=== PATIENT | female | born 1995 | race Caucasian/White ===

== ENCOUNTER 2023-01-14 09:23 | Emergency (ER) | payer OTHER ==
--- NOTE | 2023-01-14 09:43 | ERPHSYRPT ---
- History of Present Illness Time Seen by Provider: 01/14/23 09:43 Historian: patient Exam Limitations: no limitations Physician History: This is a 27-year-old white female patient who has a history of rheumatoid arthritis/lupus on methotrexate and leucovorin medication for this condition as well as pilocarpine for dry mouth, who presents to the emergency room with sub sternal central chest pain that is described as a squeezing and choking sensation that began 6 days ago. It has been intermittent radiating up into her neck at times. However since yesterday evening, is been more constant. Patient also has a history of anxiety and anemia. There have been no new medications. Patient has not had a cough or fever. She has no flulike symptoms. Prior to Tuesday, patient denies having this type of symptomatology. She is not short of breath. She has no abdominal pain. She has had no nausea vomiting or diarrhea symptoms. Timing/Duration: day(s) (6) Activities at Onset: none Quality: other (Squeezing choking sensation) Location: substernal, central Chest Pain Radiation: neck Severity of Pain-Max: mild (To moderate) Severity of Pain-Current: mild Modifying Factors: Improves With: nothing Associated Symptoms: denies symptoms Prior Chest Pain/Cardiac Workup: no prior chest pain Nitro Today/Relief: no nitro taken today Aspirin Treatment Today: no aspirin today Allergies/Adverse Reactions: No Known Drug Allergies Allergy (Unverified 01/14/23 09:38) Home Medications: Ferrous Sulfate 325 mg [Feosol 325 mg] 325 mg PO DAILY 01/14/23 [History] Fluoxetine HCl 10 mg [Prozac 10 mg] 10 mg PO DAILY 01/14/23 [History] Leucovorin Calcium 10 mg PO DAILY 01/14/23 [History] Methotrexate [Xatmep] 2.5 mg PO UD 01/14/23 [History] Pilocarpine HCl [Salagen] 5 mg PO DAILY 01/14/23 [History] Travel Risk - International Travel Have you traveled outside of the country in past 3 weeks: No - Coronavirus Screening Are you exhibiting any of the following symptoms?: No Close contact with a COVID-19 positive Pt in past 14-21 Days: No - Review of Systems Constitutional: No Symptoms Eyes: No Symptoms Ears, Nose, & Throat: No Symptoms Respiratory: No Symptoms Cardiac: Chest Pain Abdominal/Gastrointestinal: No Symptoms Genitourinary Symptoms: No Symptoms Musculoskeletal: No Symptoms Skin: No Symptoms Neurological: No Symptoms Psychological: No Symptoms Endocrine: No Symptoms Hematologic/Lymphatic: No Symptoms Immunological/Allergic: No Symptoms All Other Systems: Reviewed and Negative - Past Medical History Pertinent Past Medical History: Yes - Past Surgical History Past Surgical History: Yes - Nursing Vital Signs Nursing Vital Signs: Initial Vital Signs Pulse Rate 84 01/14/23 09:35 Respiratory Rate 15 01/14/23 09:35 Blood Pressure 133/79 01/14/23 09:35 O2 Sat by Pulse Oximetry 100 01/14/23 09:35 Pain Scale Pain Intensity 5 - Physical Exam General Appearance: no apparent distress, alert, anxiety Eye Exam: PERRL/EOMI, eyes nml inspection Ears, Nose, Throat Exam: normal ENT inspection, moist mucous membranes Neck Exam: normal inspection, non-tender, supple, full range of motion Respiratory Exam: normal breath sounds, chest tenderness, lungs clear, airway intact, No respiratory distress Cardiovascular Exam: regular rate/rhythm, normal heart sounds, normal peripheral pulses Gastrointestinal/Abdomen Exam: soft, normal bowel sounds, No tenderness Pelvic Exam: not done Rectal Exam: not done Back Exam: normal inspection, normal range of motion, No CVA tenderness, No vertebral tenderness Extremity Exam: normal inspection, normal range of motion, pelvis stable Neurologic Exam: alert, oriented x 3, cooperative, youth care specialist II-XII nml as tested, n ormal mood/affect, nml cerebellar function, nml station & gait, sensation nml Skin Exam: normal color, warm, dry Lymphatic Exam: No adenopathy SpO2 Interpretation: normal O2 Delivery: Room Air - Course Nursing assessment & vital signs reviewed: Yes EKG Interpreted by Me: RATE (96), Sinus Rhythm, NORMAL AXIS, NORMAL INTERVALS, NORMAL QRS, NORMAL ST-T, Other (No acute ischemic changes on today's twelve-lead EKG.) Ordered Tests: Active Orders 24 hr Category Date Time Status Circuit Design Engineer STAT Care 01/14/23 10:06 Active EKG-ER Only STAT Care 01/14/23 10:06 Active IV Insertion STAT Care 01/14/23 10:06 Active Pulse Oximetry (ED) STAT Care 01/14/23 10:06 Active CHEST 1 VIEW (PORTABLE) Stat Exams 01/14/23 10:06 Completed CBC W DIFF Stat Lab 01/14/23 10:10 Completed CMP Stat Lab 01/14/23 10:10 Completed D-DIMER QUANTITATIVE Stat Lab 01/14/23 10:10 Completed TROPONIN Q4H Lab 01/14/23 10:10 Completed TROPONIN Q4H Lab 01/14/23 14:15 Ordered TROPONIN Q4H Lab 01/14/23 18:15 Ordered Medication Summary Discontinued Medications Generic Name Dose Route Start Last Admin Trade Name Connor PRN Reason Stop Dose Admin Aspirin 324 mg 01/14/23 10:06 01/14/23 10:23 Aspirin 81 Mg Tab.Chew PO 01/14/23 10:07 324 mg STAT ONE Administration Aspirin Confirm 01/14/23 10:17 Aspirin 81 Mg Tab.Chew Administered 01/14/23 10:18 Dose 324 mg .ROUTE .STK-MED ONE Lab/Rad Data: Laboratory Result Diagrams 01/14/23 10:10 01/14/23 10:10 Laboratory Results 01/14/23 01/14/23 01/14/23 Range/Units 10:10 10:10 10:10 WBC (4.0-10.5) x10^3/uL RBC (4.1-5.4) x10^6/uL Hgb (12.0-16.0) g/dL Hct (35-47) % MCV (78-100) fL MCH (26-32) pg MCHC (32-36) g/dL RDW (11.5-14.0) % Plt Count (150-450) x10^3/uL MPV (7.5-11.0) fL Gran % (36.0-66.0) % Immature Gran % (Auto) (0.00-0.4) % Nucleat RBC Rel Count (0.00-0.1) % Eos # (Auto) (0-0.5) x10^3/uL Immature Gran # (Auto) (0.00-0.03) x10^3u/L Absolute Lymphs (auto) (1.0-4.6) x10^3/uL Absolute Monos (auto) (0.0-1.3) x10^3/uL Absolute Nucleated RBC (0.00-0.01) x10^3u/L Lymphocytes % (24.0-44.0) % Monocytes % (0.0-12.0) % Eosinophils % (0.00-5.0) % Basophils % (0.0-0.4) % Absolute Granulocytes (1.4-6.9) x10^3/uL Basophils # (0-0.4) x10^3/uL D-Dimer 0.44 (0.0-0.50) mg/L Sodium 142 (137-145) mmol/L Potassium 4.3 (3.5-5.1) mmol/L Chloride 107 (98-107) mmol/L Carbon Dioxide 27 (22-30) mmol/L Anion Gap 13.1 (5-15) MEQ/L BUN 10 (7-17) mg/dL Creatinine 0.72 (0.52-1.04) mg/dL Estimated GFR > 60.0 ML/MIN Glucose 82 (74-106) mg/dL Calcium 9.0 (8.4-10.2) mg/dL Total Bilirubin 0.40 (0.2-1.3) mg/dL AST 29 (14-36) U/L ALT 33 (0-35) U/L Alkaline Phosphatase 67 (38-126) U/L Troponin I < 0.012 (0.000-0.034) ng/mL Serum Total Protein 8.2 (6.3-8.2) g/dL Albumin 4.1 (3.5-5.0) g/dL 01/14/23 Range/Units 10:10 WBC 3.7 L (4.0-10.5) x10^3/uL RBC 3.84 L (4.1-5.4) x10^6/uL Hgb 11.4 L (12.0-16.0) g/dL Hct 34.3 L (35-47) % MCV 89.3 (78-100) fL MCH 29.7 (26-32) pg MCHC 33.2 (32-36) g/dL RDW 12.8 (11.5-14.0) % Plt Count 266 (150-450) x10^3/uL MPV 9.5 (7.5-11.0) fL Gran % 62.2 (36.0-66.0) % Immature Gran % (Auto) 0.3 (0.00-0.4) % Nucleat RBC Rel Count 0.0 (0.00-0.1) % Eos # (Auto) 0.03 (0-0.5) x10^3/uL Immature Gran # (Auto) 0.01 (0.00-0.03) x10^3u/L Absolute Lymphs (auto) 0.99 L (1.0-4.6) x10^3/uL Absolute Monos (auto) 0.35 (0.0-1.3) x10^3/uL Absolute Nucleated RBC 0.00 (0.00-0.01) x10^3u/L Lymphocytes % 26.9 (24.0-44.0) % Monocytes % 9.5 (0.0-12.0) % Eosinophils % 0.8 (0.00-5.0) % Basophils % 0.3 (0.0-0.4) % Absolute Granulocytes 2.29 (1.4-6.9) x10^3/uL Basophils # 0.01 (0-0.4) x10^3/uL D-Dimer (0.0-0.50) mg/L Sodium (137-145) mmol/L Potassium (3.5-5.1) mmol/L Chloride (98-107) mmol/L Carbon Dioxide (22-30) mmol/L Anion Gap (5-15) MEQ/L BUN (7-17) mg/dL Creatinine (0.52-1.04) mg/dL Estimated GFR ML/MIN Glucose (74-106) mg/dL Calcium (8.4-10.2) mg/dL Total Bilirubin (0.2-1.3) mg/dL AST (14-36) U/L ALT (0-35) U/L Alkaline Phosphatase (38-126) U/L Troponin I (0.000-0.034) ng/mL Serum Total Protein (6.3-8.2) g/dL Albumin (3.5-5.0) g/dL - Progress Progress: improved, re-examined Air Movement: good Progress Note: 01/14/23 10:40 This patient's medical issue is 1 of moderate complexity. The level of complexity in the work-up performed is based on review of the patient's past medical history, review of the patient's medication list, review of the patient's drug allergy list, history of present illness and physical findings on examination. The work-up in this patient includes placement of intravenous line, providing the patient with aspirin, CBC, CMP, D-dimer, troponin level and chest x-ray. The results of these studies are pending. 01/14/23 11:07 Chest x-ray was interpreted by the radiologist and I reviewed the impression. There is no evidence of any acute cardiopulmonary process. Blood Culture(s) Obtained: No Antibiotics given: No Counseled pt/family regarding: lab results, diagnosis, need for follow-up, rad results Medical Desision Making - Independent Historian Additional History obtained from: Mother - Diagnostic Testing Diagnostic test were ordered, analyzed, and reviewed by me: Yes Radiological Interpretation: Reviewed by me, Teleradiologist Report - Risk of complications Low Risk: Low risk of morbidity from additional dx testing or treatment - Departure Departure Disposition: Home Clinical Impression: Chest pain Condition: Stable Critical Care Time: No Referrals: JEAN-PIERRE DE PAZ NP [NON-STAFF PHY W/O PRIVILEGES] - Follow up/PCP as directed Additional Instructions: Drink plenty of fluids. May use Tylenol and ibuprofen for pain control. Call your primary care provider and lead miner blasting today to make arrangements for follow-up appointment for further evaluation and management.
[2023-01-14 09:47] VITALS: TEMP 97.2
[2023-01-14] MEDS ORDERED: BABY ASPIRIN 81 MG CHEW PO ONE (10:06)
[2023-01-14] MEDS ORDERED: BABY ASPIRIN 81 MG CHEW ONE (10:17)
[2023-01-14 10:20] LABS: Absolute Neutrophil Ct (ANC) 2.29 x10^3/uL (1.4-6.9); BASOPHIL % 0.3 % (0.0-0.4); Basophil (Absolute #) 0.01 x10^3/uL (0-0.4); Eosinophil % 0.8 % (0.00-5.0); Eosinophil (Absolute #) 0.03 x10^3/uL (0-0.5); Hematocrit 34.3 % (35-47); Hemoglobin 11.4 g/dL (12.0-16.0); IMMATURE GRAN # 0.01 x10^3u/L (0.00-0.03); IMMATURE GRAN % 0.3 % (0.00-0.4); Lymphocyte (Absolute #) 0.99 x10^3/uL (1.0-4.6); Lymphocytes % 26.9 % (24.0-44.0); Mean Cell Volume 89.3 fL (78-100); Mean Corpuscular Hemoglobin 29.7 pg (26-32); Mean Corpuscular Hgb Concent. 33.2 g/dL (32-36); Mean Platelet Volume 9.5 fL (7.5-11.0); Monocyte (Absolute #) 0.35 x10^3/uL (0.0-1.3); Monocytes % 9.5 % (0.0-12.0); Neutrophil % 62.2 % (36.0-66.0); Platelet Count 266 x10^3/uL (150-450); Red Blood Count 3.84 x10^6/uL (4.1-5.4); Red Cell Distribution Width 12.8 % (11.5-14.0); White Blood Count 3.7 x10^3/uL (4.0-10.5)
[2023-01-14 10:35] LABS: ALBUMIN 4.1 g/dL (3.5-5.0); ALKALINE PHOSPHATASE 67 U/L (38-126); ANION GAP 13.1 MEQ/L (5-15); BLOOD UREA NITROGEN 10 mg/dL (7-17); CHLORIDE 107 mmol/L (98-107); Carbon Dioxide 27 mmol/L (22-30); Creatinine 1 0.72 mg/dL (0.52-1.04); EST GLOMERULAR FILTRATION RATE > 60.0 ML/MIN; Glucose 82 mg/dL (74-106); Potassium 4.3 mmol/L (3.5-5.1); SGOT/AST 29 U/L (14-36); SGPT/ALT 33 U/L (0-35); SODIUM 142 mmol/L (137-145); Total Protein 8.2 g/dL (6.3-8.2)
--- NOTE | 2023-01-14 10:41 | XRAY ---
Indication: Chest pain/pressure. Comparison: None Portable chest demonstrates normal heart, lungs, and bony thorax.
[2023-01-14 11:18] VITALS: BP 118/52; PULSE 84; RESP 14; O2SAT 98
== END 2023-01-14 11:26 | disposition home or self-care (01) ==
LOC: ED 09:23
DX: R07.9 Chest pain, unspecified (principal); Z79.899 Other long term (current) drug therapy
CPT/HCPCS: 36000; 36415; 71045; 80053; 84484; 85025; 85379; 93005; 93041; 94760; 99284; A9270-GY

== ENCOUNTER 2024-01-04 16:03 | Emergency (ER) | payer OTHER ==
--- NOTE | 2024-01-04 16:07 | ERPHSYRPT ---
- History of Present Illness Time Seen by Provider: 01/04/24 16:07 Historian: patient Exam Limitations: no limitations Physician History: This is a 28-year-old white female patient who has chest discomfort that worsens with inspiration. She describes it as an ache but then it changes to sharp pain when she takes a deep breath. Patient has a known history of pericarditis. She is on prednisone 5 mg daily. Patient contacted her primary care provider who requested that she come to the emergency department. Patient showed me the request of certain items that they desire and the workup which includes D-dimer, chest x-ray and twelve-lead EKG. It also provided her with the plan of care if everything in our workup is normal and that is to increase her prednisone. Patient has had no cough. Patient denies fever. She has no known coronary artery disease. Patient has a history anxiety and chronic anemia. Timing/Duration: other (Unchanged in the last 2 weeks) Activities at Onset: none Quality: aching, sharpness Location: substernal, central Chest Pain Radiation: no radiation Severity of Pain-Max: mild (To moderate with deep inspiration) Severity of Pain-Current: mild Modifying Factors: Improves With: nothing Associated Symptoms: denies symptoms Nitro Today/Relief: no nitro taken today Aspirin Treatment Today: no aspirin today Allergies/Adverse Reactions: No Known Drug Allergies Allergy (Unverified 01/14/23 09:38) Home Medications: Ferrous Sulfate 325 mg [Feosol 325 mg] 325 mg PO DAILY 01/14/23 [History] Fluoxetine HCl 10 mg [Prozac 10 mg] 10 mg PO DAILY 01/14/23 [History] Pilocarpine HCl [Salagen] 5 mg PO DAILY 01/14/23 [History] Belimumab [Benlysta] 200 mg SQ UD 01/04/24 [History] Hydroxychloroquine Sulfate 200 mg PO BID 01/04/24 [History] Mecobalamin [B12 Active] 1,000 mcg PO DAILY 01/04/24 [History] Prednisone 5 mg [Deltasone 5 mg] 5 mg PO DAILY 01/04/24 [History] Hx Tetanus, Diphtheria Vaccination/Date Given: No Hx Influenza Vaccination/Date Given: Yes Hx Pneumococcal Vaccination/Date Given: No Travel Risk - International Travel Have you traveled outside of the country in past 3 weeks: No - Emerging Infectious Disease Are you exhibiting symptoms associated with any current EIDs: No - Review of Systems Constitutional: No Symptoms Eyes: No Symptoms Ears, Nose, & Throat: No Symptoms Respiratory: No Symptoms Cardiac: Chest Pain Abdominal/Gastrointestinal: No Symptoms Genitourinary Symptoms: No Symptoms Musculoskeletal: No Symptoms Skin: No Symptoms Neurological: No Symptoms Psychological: No Symptoms Endocrine: No Symptoms Hematologic/Lymphatic: No Symptoms Immunological/Allergic: No Symptoms All Other Systems: Reviewed and Negative - Past Medical History Pertinent Past Medical History: Yes Musculoskeletal History: Rheumatoid Arthritis Other Medical History: lupus ,anemia - Past Surgical History Past Surgical History: Yes - Social History Smoking Status: Never smoker Exposure to second hand smoke: No Drug Use: none Patient Lives Alone: Yes - Nursing Vital Signs Nursing Vital Signs: Initial Vital Signs Pulse Rate 85 01/04/24 16:06 Respiratory Rate 19 01/04/24 16:06 Blood Pressure 140/80 01/04/24 16:06 O2 Sat by Pulse Oximetry 98 01/04/24 16:06 Pain Scale Pain Intensity 6 - Physical Exam General Appearance: no apparent distress, alert Eye Exam: PERRL/EOMI, eyes nml inspection Ears, Nose, Throat Exam: normal ENT inspection, moist mucous membranes Neck Exam: normal inspection, non-tender, supple, full range of motion Respiratory Exam: normal breath sounds, chest tenderness, lungs clear, airway intact, No respiratory distress Cardiovascular Exam: regular rate/rhythm, normal heart sounds, normal peripheral pulses Gastrointestinal/Abdomen Exam: soft, normal bowel sounds, No tenderness Pelvic Exam: not done Rectal Exam: not done Back Exam: normal inspection, normal range of motion, No CVA tenderness, No vertebral tenderness Extremity Exam: normal inspection, normal range of motion, pelvis stable Neurologic Exam: alert, oriented x 3, cooperative, supervisor of guidance and testing II-XII nml as tested, normal mood/affect, nml cerebellar function, nml station & gait, sensation nml Skin Exam: normal color, warm, dry Lymphatic Exam: No adenopathy SpO2 Interpretation: normal O2 Delivery: Room Air - Course Nursing assessment & vital signs reviewed: Yes EKG Interpreted by Me: RATE (77), Sinus Rhythm, NORMAL AXIS, NORMAL INTERVALS, NORMAL QRS, Other (No acute ischemic changes on today's twelve-lead EKG.) Ordered Tests: Active Orders 24 hr Category Date Time Status High Pressure Firer STAT Care 01/04/24 16:08 Active EKG-ER Only STAT Care 01/04/24 16:07 Active IV Insertion STAT Care 01/04/24 16:07 Active Pulse Oximetry (ED) STAT Care 01/04/24 16:07 Active CHEST 1 VIEW (PORTABLE) Stat Exams 01/04/24 16:07 Completed CHEST WITH CONTRAST [CT] Stat Exams 01/04/24 17:38 Taken CBC W DIFF Stat Lab 01/04/24 16:15 Completed CMP Stat Lab 01/04/24 16:15 Completed D-DIMER QUANTITATIVE Stat Lab 01/04/24 16:15 Completed MAGNESIUM Stat Lab 01/04/24 16:15 Completed TROPONIN Q4H Lab 01/04/24 16:15 Completed TROPONIN Q4H Lab 01/04/24 20:15 Ordered TROPONIN Q4H Lab 01/05/24 00:15 Ordered Medication Summary Discontinued Medications Generic Name Dose Route Start Last Admin Trade Name Freq PRN Reason Stop Dose Admin Aspirin 324 mg 01/04/24 16:07 01/04/24 16:21 Aspirin 81 Mg Tab.Chew PO 01/04/24 16:08 Not Given STAT ONE Aspirin 162 mg 01/04/24 16:15 01/04/24 16:24 Aspirin 81 Mg Tab.Chew PO 01/04/24 16:16 162 mg STAT ONE Administration Aspirin Confirm 01/04/24 16:23 Aspirin 81 Mg Tab.Chew Administered 01/04/24 16:24 Dose 162 mg .ROUTE .STK-MED ONE Methylprednisolone Sodium 0 mg 01/04/24 16:46 01/04/24 16:54 Succinate 125 mg/ Sterile IV 01/04/24 16:47 125 mg Water 2 ml STAT ONE Administration Sodium Chloride 500 mls @ 500 mls/hr 01/04/24 17:39 01/04/24 18:13 Sodium Chloride 0.9% 500 Ml IV 01/04/24 18:38 Infused .Q1H ONE Infusion Sodium Chloride Confirm 01/04/24 17:41 Sodium Chloride 0.9% 500 Ml Administered 01/04/24 17:42 Dose 500 mls @ ud IV .STK-MED ONE Methylprednisolone Sodium Succinate Confirm 01/04/24 16:50 Methylprednis Sod Succ 125 Mg/2 Ml Vial Administered 01/04/24 16:51 Dose 125 mg .ROUTE .STK-MED ONE Sterile Water Confirm 01/04/24 16:50 Water For Injection,Sterile 10 Ml Vial Administered 01/04/24 16:51 Dose 10 ml IJ .[place]-MED ONE Lab/Rad Data: Laboratory Result Diagrams 01/04/24 16:15 01/04/24 16:15 Laboratory Results 01/04/24 01/04/24 01/04/24 Range/Units 16:15 16:15 16:15 WBC (3.98-10.04) x10^3/uL RBC (3.93-5.22) x10^6/uL Hgb (11.2-15.7) g/dL Hct (34.1-44.9) % MCV (79.4-94.8) fL MCH (25.6-32.2) pg MCHC (32.2-35.5) g/dL RDW (11.7-14.4) % Plt Count (182-369) x10^3/uL MPV (9.4-12.3) fL Gran % (34.0-71.1) % Immature Gran % (Auto) (0.001-0.429) % Nucleat RBC Rel Count (0.00-0.2) % Eos # (Auto) (0.04-0.36) x10^3/uL Immature Gran # (Auto) (0.001-0.031) x10^3u/L Absolute Lymphs (auto) (1.18-3.74) x10^3/uL Absolute Monos (auto) (0.24-0.86) x10^3/uL Absolute Nucleated RBC (0.00-0.012) x10^3u/L Lymphocytes % (19.3-51.7) % Monocytes % (4.7-12.5) % Eosinophils % (0.7-5.8) % Basophils % (0.1-1.2) % Absolute Granulocytes (1.56-6.13) x10^3/uL Basophils # (0.01-0.08) x10^3/uL D-Dimer 1.05 H* (0.0-0.50) mg/L Sodium 138 (135-145) mmol/L Potassium 4.2 (3.5-5.1) mmol/L Chloride 105 (98-107) mmol/L Carbon Dioxide 26 (22-30) mmol/L Anion Gap 11.8 (5-15) MEQ/L BUN 16 (7-17) mg/dL Creatinine 0.76 (0.52-1.04) mg/dL Estimated GFR 110.8 ML/MIN Glucose 96 (74-106) mg/dL Calcium 9.1 (8.4-10.2) mg/dL Magnesium 1.8 (1.6-2.3) mg/dL Total Bilirubin 0.20 (0.2-1.3) mg/dL AST 23 (14-36) U/L ALT 19 (0-35) U/L Alkaline Phosphatase 61 (38-126) U/L Troponin I < 0.012 (0.000-0.033) ng/mL Serum Total Protein 7.4 (6.3-8.2) g/dL Albumin 3.6 (3.5-5.0) g/dL 01/04/24 Range/Units 16:15 WBC 5.9 (3.98-10.04) x10^3/uL RBC 3.96 (3.93-5.22) x10^6/uL Hgb 11.4 (11.2-15.7) g/dL Hct 34.2 (34.1-44.9) % MCV 86.4 (79.4-94.8) fL MCH 28.8 (25.6-32.2) pg MCHC 33.3 (32.2-35.5) g/dL RDW 13.2 (11.7-14.4) % Plt Count 320 (182-369) x10^3/uL MPV 9.1 L (9.4-12.3) fL Gran % 74.8 H (34.0-71.1) % Immature Gran % (Auto) 0.5 H (0.001-0.429) % Nucleat RBC Rel Count 0.0 (0.00-0.2) % Eos # (Auto) 0.06 (0.04-0.36) x10^3/uL Immature Gran # (Auto) 0.03 (0.001-0.031) x10^3u/L Absolute Lymphs (auto) 1.00 L (1.18-3.74) x10^3/uL Absolute Monos (auto) 0.39 (0.24-0.86) x10^3/uL Absolute Nucleated RBC 0.00 (0.00-0.012) x10^3u/L Lymphocytes % 16.8 L (19.3-51.7) % Monocytes % 6.6 (4.7-12.5) % Eosinophils % 1.0 (0.7-5.8) % Basophils % 0.3 (0.1-1.2) % Absolute Granulocytes 4.44 (1.56-6.13) x10^3/uL Basophils # 0.02 (0.01-0.08) x10^3/uL D-Dimer (0.0-0.50) mg/L Sodium (135-145) mmol/L Potassium (3.5-5.1) mmol/L Chloride (98-107) mmol/L Carbon Dioxide (22-30) mmol/L Anion Gap (5-15) MEQ/L BUN (7-17) mg/dL Creatinine (0.52-1.04) mg/dL Estimated GFR ML/MIN Glucose (74-106) mg/dL Calcium (8.4-10.2) mg/dL Magnesium (1.6-2.3) mg/dL Total Bilirubin (0.2-1.3) mg/dL AST (14-36) U/L ALT (0-35) U/L Alkaline Phosphatase (38-126) U/L Troponin I (0.000-0.033) ng/mL Serum Total Protein (6.3-8.2) g/dL Albumin (3.5-5.0) g/dL - Progress Progress: improved, re-examined Air Movement: good Progress Note: 01/04/24 17:11 My medical decision making and the assignment of moderate complexity to this patient's medical issue today is based on review of the patient's past medical history, review the patient's medication list, review patient drug allergy list, history present illness and physical findings on examination. The workup in this patient includes placement of intravenous line, infusion of Solu-Medrol 125 mg intravenously, twelve-lead EKG, troponin level, D-dimer level, chest x-ray, CBC and CMP. Differential diagnosis includes but is not limited to nonspecific chest pain, pericarditis, myocardial infarction, pulmonary embolism, pneumonia, arrhythmia, electrolyte abnormalities Chest x-ray was interpreted by the radiologist and I reviewed the impression. The impression states normal chest x-ray without any acute cardiopulmonary process. 01/04/24 19:13 CT scan of the chest with contrast was ordered by me based on my interpretation of all the laboratory data workup. The D-dimer was over 1.0. I interpreted the other laboratory data results as well. The CT scan of the chest with contrast was interpreted by the radiologist and I reviewed the impression. The impression states normal CT scanning of the chest with contrast. Blood Culture(s) Obtained: No Antibiotics given: No Counseled pt/family regarding: lab results, diagnosis, need for follow-up, rad results Medical Desision Making - Independent Historian Additional History obtained from: Mother - Diagnostic Testing Diagnostic test were ordered, analyzed, and reviewed by me: Yes Radiological Interpretation: Reviewed by me, Teleradiologist Report - Risk of complications Low Risk: Low risk of morbidity from additional dx testing or treatment - Departure Departure Disposition: Home Clinical Impression: Nonspecific chest pain Condition: Stable Critical Care Time: No Referrals: REGGIE ROSENBAUM NP [Primary Care Provider] - Follow up/PCP as directed Additional Instructions: Continue your medication as prescribed. Make your adjustments in the prednisone as you are primary care provider instructed you to do. Call your primary care provider and lead security officer tomorrow, 01/05/2024 to make arrangements for follow-up appointment for further evaluation and management.
[2024-01-04] MEDS: BABY ASPIRIN 81 MG CHEW PO ONE ×2 (16:21→16:24)
[2024-01-04 16:23] VITALS: TEMP 97
[2024-01-04] MEDS ORDERED: BABY ASPIRIN 81 MG CHEW ONE (16:23)
[2024-01-04 16:26] LABS: Absolute Neutrophil Ct (ANC) 4.44 x10^3/uL (1.56-6.13); BASOPHIL % 0.3 % (0.1-1.2); Basophil (Absolute #) 0.02 x10^3/uL (0.01-0.08); Eosinophil (Absolute #) 0.06 x10^3/uL (0.04-0.36); Hematocrit 34.2 % (34.1-44.9); Hemoglobin 11.4 g/dL (11.2-15.7); IMMATURE GRAN # 0.03 x10^3u/L (0.001-0.031); IMMATURE GRAN % 0.5 % (0.001-0.429); Lymphocytes % 16.8 % (19.3-51.7); Mean Cell Volume 86.4 fL (79.4-94.8); Mean Corpuscular Hemoglobin 28.8 pg (25.6-32.2); Mean Corpuscular Hgb Concent. 33.3 g/dL (32.2-35.5); Mean Platelet Volume 9.1 fL (9.4-12.3); Monocyte (Absolute #) 0.39 x10^3/uL (0.24-0.86); Monocytes % 6.6 % (4.7-12.5); Neutrophil % 74.8 % (34.0-71.1); Platelet Count 320 x10^3/uL (182-369); Red Blood Count 3.96 x10^6/uL (3.93-5.22); Red Cell Distribution Width 13.2 % (11.7-14.4); White Blood Count 5.9 x10^3/uL (3.98-10.04)
--- NOTE | 2024-01-04 16:33 | XRAY ---
Indication: Chest pain. Comparison: January 14, 2023 Portable chest again demonstrates normal heart, lungs, and bony thorax.
[2024-01-04] MEDS ORDERED: Sterile H2O 10 ml IJ ONE (16:50)
[2024-01-04] MEDS ORDERED: solu-MEDROL ONE (16:50)
[2024-01-04] MEDS: solu-MEDROL 125 MG, Sterile H2O 10 ml 2 ML IV ONE (16:54)
[2024-01-04 17:30] LABS: ALBUMIN 3.6 g/dL (3.5-5.0); ANION GAP 11.8 MEQ/L (5-15); BILIRUBIN,TOTAL 0.2 mg/dL (0.2-1.3); Calcium 9.1 mg/dL (8.4-10.2); Creatinine 1 0.76 mg/dL (0.52-1.04); EST GLOMERULAR FILTRATION RATE 110.8 ML/MIN; MAGNESIUM 1.8 mg/dL (1.6-2.3); Potassium 4.2 mmol/L (3.5-5.1); Total Protein 7.4 g/dL (6.3-8.2)
[2024-01-04] MEDS ORDERED: Sodium Chloride 0.9% 500 ML 500 ML IV ONE (17:41)
[2024-01-04] MEDS: Sodium Chloride 0.9% 500 ML 500 ML IV ONE (17:42)
[2024-01-04 19:20] VITALS: BP 119/70; PULSE 72; RESP 16; O2SAT 96
--- NOTE | 2024-01-05 08:36 | XRAY ---
Indication: Chest pain. Elevated d-dimer. Multiple contiguous axial images obtained through the chest using 80 cc Isovue 370 contrast and PE protocol. Comparison: None Adequate opacification of the pulmonary arteries to include lobar and segmental branches. No pulmonary embolus. Heart not enlarged. Aorta is normal in course and caliber. No pathologic mediastinal/hilar lymphadenopathy. Lungs inflated and clear. Bony thorax intact. Limited upper abdomen demonstrates mild diffuse fatty liver. Impression: Incidental fatty liver. Remaining CT chest pulmonary embolus exam is normal.
== END 2024-01-04 19:24 | disposition home or self-care (01) ==
LOC: ED 16:03
DX: R07.9 Chest pain, unspecified (principal); Z79.52 Long term (current) use of systemic steroids; Z79.899 Other long term (current) drug therapy
CPT/HCPCS: 36000; 36415; 71045; 71260; 80053; 83735; 84484; 85025; 85379; 93005; 93041; 94760; 96374; 99284; J2919; A9270-GY